=== PATIENT | male | born 1945 | race Caucasian/White ===

== ENCOUNTER → 2024-11-26 08:29 | Outpatient (REF) | payer MEDICARE, SELFPAY ==
[2024-11-26 10:06] LABS: % Basophils 1.5 % (0-2); % Eosinophils 3.2 % (0-6); % Immature Granulocytes 0.2 % (0-0.5); % Lymphocytes 37.2 % (20.5-51.1); % Monocytes 11.2 % (1.7-9.3); % Neutrophils 46.7 % (42.2-75.2); Absolute Basophils 0.1 10^3/uL (0-0.2); Absolute Eosinophils 0.2 10^3/uL (0-0.7); Absolute Monocytes 0.6 10^3/uL (0.1-0.6); Absolute Neutrophils 2.5 10^3/uL (1.4-6.5); Hemoglobin 15.6 g/dL (13.0-18.0); Mean Corp Hgb Conc. 34.7 g/dL (33.0-37.0); Mean Corpuscular Hgb 34.1 pg (27.0-31.0); Mean Corpuscular Volume 98.5 fL (80.0-94.0); Mean Platelet Volume 11.8 fL (7.4-10.4); Nucleated Red Blood Cells % 0 % (-); Platelet Count 209 10^3/uL (130-400); Red Blood Cell Count 4.57 10^6/uL (4.70-6.10); Red Cell Dist. Width 11.4 % (11.5-14.5); White Blood Cell Count 5.3 10^3/uL (4.8-10.8)
[2024-11-26 10:11] LABS: Urine Albumin 2+ (Neg - Trace); Urine Bilirubin Negative (Negative); Urine Character Clear (Clear); Urine Color Yellow; Urine Glucose Negative (Negative); Urine Ketone Negative (Negative); Urine Leukocyte Negative (Negative); Urine Nitrite Negative (Negative); Urine Occult Blood Negative (Negative); Urine Specific Gravity 1.025 (<1.030); Urine Urobilinogen Negative (Neg - 1+)
[2024-11-26 10:25] LABS: Urine Mucus Moderate; Urine Squamous Cell 0-2 /LPF (Few)
[2024-11-26 10:26] LABS: ALT (SGPT) 16 U/L (0-50); AST (SGOT) 21 U/L (17-59); Albumin 4.2 g/dl (3.5-5.0); Alkaline Phosphatase 68 U/L (38-126); Blood Urea Nitrogen 11 mg/dl (9-20); Calcium 10.4 mg/dl (8.4-10.2); Carbon Dioxide 26 mmol/L (22-30); Chloride 109 mmol/L (98-107); Glucose 103 mg/dl (70-99); HDL Cholesterol 40 mg/dl; LDL Cholesterol, Calculated 117 mg/dl; Potassium 3.9 mmol/L (3.5-5.1); Sodium 143 mmol/L (135-145); Total Bilirubin 0.8 mg/dl (0.2-1.3); Total Cholesterol 181 mg/dl (50-199); Triglyceride 120 mg/dl (10-149); Urine Bacteria Few (Negative); Urine Red Blood Cell 0-2 /HPF (0-2); Urine White Cell 0-2 /HPF (0-5); Very Low Density Lipoprotein 24 mg/dl (0-30); eGFR > 60.00
[2024-11-26 10:56] LABS: PSA, Total - Screen 1.26 ng/ml (0.0-4.0)
== END ==
LOC: REG 08:29
PROVIDERS: ATTENDING PHYSICIAN Internal Medicine
DX: I10 Essential (primary) hypertension (principal); G25.0 Essential tremor; E78.5 Hyperlipidemia, unspecified; E55.9 Vitamin D deficiency, unspecified; R09.89 Other specified symptoms and signs involving the circulatory and respiratory systems; Z00.00 Encounter for general adult medical examination without abnormal findings; Z12.5 Encounter for screening for malignant neoplasm of prostate
CPT/HCPCS: 36415; 80053; 80061; 81003; 81015; 85025; G0103

== ENCOUNTER → 2025-01-21 08:13 | Outpatient (REF) | payer MEDICARE, SELFPAY ==
[2025-01-21 10:07] LABS: Urine Character Clear (Clear)
[2025-01-21 10:46] LABS: Calcium 10.9 mg/dl (8.4-10.2)
[2025-01-21 11:30] LABS: Urine Squamous Cell 0-2 /LPF (Few); Urine White Cell None Seen /HPF (0-5)
== END ==
LOC: REG 08:13
PROVIDERS: ATTENDING PHYSICIAN Internal Medicine
DX: R80.9 Proteinuria, unspecified (principal); E83.52 Hypercalcemia
CPT/HCPCS: 36415; 81003; 81015; 83970